=== PATIENT | female | born 1955 | race Caucasian/White ===

== ENCOUNTER 2024-07-28 15:31 | Emergency (ER) | payer MEDICARE ==
[2024-07-28] MEDS ORDERED: DELTASONE 20 MG ONE (16:15)
[2024-07-28 16:16] VITALS: TEMP 98.5
[2024-07-28] MEDS: DELTASONE 20 MG PO ONE (16:17)
--- NOTE | 2024-07-28 16:18 | ERPHSYRPT ---
- History of Present Illness Time Seen by Provider: 07/28/24 16:16 Source: patient Exam Limitations: no limitations Physician History: 69-year-old female presents to our ED for evaluation of a cough and fever. Symptoms started 1 week ago. Patient went to an urgent care on Saturday. Patient tested negative for strep. Patient is here because symptoms are ongoing. Patient reports a fever of 100.2 at home. However patient currently afebrile. No chest pain no shortness of breath. No nausea vomiting or diaphoresis. Symptoms are mild to moderate in intensity. No specific worsening or improving factors. Patient otherwise feels well. She voices no other complaints or concerns at this time. Portions of this note were created with voice recognition technology. There may be grammatical, spelling, punctuation or sound alike errors Timing/Duration: today Severity: moderate Modifying Factors: Improves With: nothing Associated Symptoms: denies symptoms Allergies/Adverse Reactions: No Known Drug Allergies Allergy (Verified 07/28/24 16:16) Home Medications: Tetracycline HCl 500 mg PO DAILY 07/28/24 [History] - Review of Systems Constitutional: No Symptoms, No Fever, No Chills Eyes: No Symptoms Ears, Nose, & Throat: No Symptoms Respiratory: No Symptoms, No Cough, No Dyspnea Cardiac: No Symptoms, No Chest Pain, No Edema, No Syncope Abdominal/Gastrointestinal: No Symptoms, No Abdominal Pain, No Nausea, No Vomiting, No Diarrhea Genitourinary Symptoms: No Symptoms, No Dysuria Musculoskeletal: No Symptoms, No Back Pain, No Neck Pain Skin: No Symptoms, No Rash Neurological: No Symptoms, No Dizziness, No Focal Weakness, No Sensory Changes Psychological: No Symptoms Endocrine: No Symptoms Hematologic/Lymphatic: No Symptoms Immunological/Allergic: No Symptoms All Other Systems: Reviewed and Negative - Past Medical History Neurological History: Other Cardiac History: No Pertinent History Respiratory History: No Pertinent History Endocrine Medical History: No Pertinent History Musculoskeletal History: Osteoporosis Other Medical History: SCIATIC PAIN, PIRIFORMIS PAIN. L UE FRACTURE 12/29/21. SURGERY 01/09/22. - Nursing Vital Signs Nursing Vital Signs: Initial Vital Signs Temperature 98.5 F 07/28/24 16:09 Pulse Rate 107 H 07/28/24 16:09 Respiratory Rate 20 07/28/24 16:09 Blood Pressure 154/88 07/28/24 16:09 O2 Sat by Pulse Oximetry 97 07/28/24 16:09 Pain Scale Pain Intensity 2 - Physical Exam General Appearance: no apparent distress, alert Eye Exam: PERRL/EOMI, eyes nml inspection Ears, Nose, Throat Exam: normal ENT inspection, TMs normal, pharynx normal, moist mucous membranes Neck Exam: normal inspection, non-tender, supple, full range of motion Respiratory Exam: normal breath sounds, airway intact, other (Mildly coarse breath sounds throughout), No respiratory distress Cardiovascular Exam: regular rate/rhythm, normal heart sounds, normal peripheral pulses Gastrointestinal/Abdomen Exam: soft, normal bowel sounds, No tenderness, No mass Back Exam: normal inspection, normal range of motion, No CVA tenderness, No vertebral tenderness Extremity Exam: normal inspection, normal range of motion, pelvis stable Neurologic Exam: alert, oriented x 3, cooperative, normal mood/affect, sensation nml, No motor deficits Skin Exam: normal color, warm, dry, No rash Lymphatic Exam: No adenopathy SpO2 Interpretation: normal SpO2: 97 O2 Delivery: Room Air - Course Nursing assessment & vital signs reviewed: Yes - Radiology Exams Chest X-ray Interpretation: Teleradiologist Report (Rt. upper lobe airspace disease. ) Ordered Tests: Active Orders 24 hr Category Date Time Status CHEST 1 VIEW (PORTABLE) Stat Exams 07/28/24 16:11 Completed UA W/RFX UR CULTURE Stat Lab 07/28/24 16:11 Completed Medication Summary Discontinued Medications Generic Name Dose Route Start Last Admin Trade Name Rossq PRN Reason Stop Dose Admin Amoxicillin/Clavulanate Potassium 875 mg 07/28/24 17:31 Amox Tr/Potassium Clavulanate 875 Mg Tablet PO 07/28/24 17:32 STAT ONE Amoxicillin/Clavulanate Potassium Confirm 07/28/24 17:37 Amox Tr/Potassium Clavulanate 875 Mg Tablet Administered 07/28/24 17:38 Dose 875 mg .ROUTE .STK-MED ONE Prednisone 40 mg 07/28/24 16:14 07/28/24 16:17 Prednisone 20 Mg Tablet PO 07/28/24 16:15 40 mg STAT ONE Administration Prednisone Confirm 07/28/24 16:15 Prednisone 20 Mg Tablet Administered 07/28/24 16:16 Dose 40 mg .ROUTE .STK-MED ONE Lab/Rad Data: Laboratory Results 07/28/24 07/28/24 Range/Units 16:18 16:11 Urine Color Yellow (Yellow) Urine Appearance Clear (Clear) Urine pH 7.0 (4.6-8.0) Ur Specific [place] <=1.005 (1.005-1.030) Urine Protein Negative (Negative) Urine Glucose (UA) Negative (Negative) mg/dL Urine Ketones Negative (Negative) Urine Blood Trace (Negative) Urine Nitrite Negative (Negative) Urine Bilirubin Negative (Negative) Urine Urobilinogen 0.2 (0.2) mg/dL Ur Leukocyte Esterase Negative (Negative) U Hyaline Cast (Auto) NONE SEEN (0-2) /LPF Urine Microscopic RBC 0-2 (0-5) /HPF Urine Microscopic WBC 0-2 (0-5) /HPF Ur Epithelial Cells None Seen (None Seen) /HPF Urine Bacteria None Seen (None Seen) /HPF Urine Culture Reflexed NO (NO) Influenza Type A Ag NEGATIVE (NEGATIVE) Influenza Type B Ag NEGATIVE (NEGATIVE) RSV (PCR) NEGATIVE (NEGATIVE) SARS-CoV-2 (PCR) NEGATIVE (NEGATIVE) Group A Strep Antibody NOT DETECTED (NEGATIVE) - Progress Progress: improved Progress Note: Patient is a 69-year-old female presents to emergency department for evaluation of cough and fever. Patient states the coughing is causing a sore throat. Rapid strep COVID influenza RSV negative. Physical exam reveals coarse breath sounds. Patient received prednisone in our ED. Chest x-ray reveals a right upper lobe pneumonia. Augmentin administered in our ED. A prescription for Augmentin, azithromycin/Z-Jose Daniel and prednisone forwarded to patient's pharmacy. No indication for further workup. Will discharge home. Patient reassessed. Vital stable. She voices no other complaints or concerns at this time. Patient agrees to follow-up with her primary care doctor within 48 hours for reevaluation. Portions of this note were created with voice recognition technology. There may be grammatical, spelling, punctuation or sound alike errors Complexity problem addressed is moderate acute complicated. No critical care time. Complex of data reviewed and analyzed is moderate. Test ordered chest reviewed results analyzed and correlated clinically with history and physical exam. Risk of complication and or risk of morbidity/mortality patient managem ent is moderate. A prescription for prednisone Augmentin and a Z-Jose Daniel forwarded to patient's pharmacy. Vital stable. Time spent to discharge patient approximately 10 minutes. Plan of care established for shared decision making. No social determinants of health present to impede follow-up. Portions of this note were created with voice recognition technology. There may be grammatical, spelling, punctuation or sound alike errors 07/28/24 17:40 Counseled pt/family regarding: lab results, diagnosis, need for follow-up, rad results - Departure Departure Disposition: Home Clinical Impression: Cough, Bronchitis, Pneumonia Condition: Stable Critical Care Time: No Referrals: KARLA MEDRANO MD [Primary Care Provider] - Follow up/PCP as directed Additional Instructions: Discharge/Care Plan DANNY VALLES was seen on 07/28/24 in the Emergency Room. The patient was counseled regarding Diagnosis,Lab results, Imaging studies, need for follow up and when to return to the Emergency Room. Prescriptions given: Discharge Note I have spoken with the patient and/or caregivers. I have explained the patient's condition, diagnosis and treatment plan based on the information available to me at this time. I have answered the patient's and/or caregiver's questions and addressed any concerns. The patient and/or caregivers have as good understanding of the patient's diagnosis, condition and treatment plan as can be expected at this point. The vital signs have been stable. The patient's condition is stable and appropriate for discharge from the emergency department. The patient will pursue further outpatient evaluation with the primary care physician or other designated or consulting physician as outlined in the discharge instructions. The patient and/or caregivers are agreeable to this plan of care and follow-up instructions have been explained in detail. The patient and/or caregivers have received these instruction. The patient/and or caregivers are aware that any significant change in condition or worsening of symptoms should prompt an immediate return to this or the closest emergency department or call 911. Prescriptions: Amox Tr/Potass Clav. 875 mg [Augmentin 875-125 Tablet] 875 mg PO BID 7 Days #14 tablet Prednisone 10 mg [Deltasone 10 mg] 20 mg PO DAILY 3 Days #6 tablet Azithromycin 250 mg [Zithromax 250 MG TABLET] 250 mg PO ZPACK #6 tablet
[2024-07-28 16:36] LABS: Appearance Clear (Clear); Bacteria None Seen /HPF (None Seen); Bilirubin Negative (Negative); Blood Trace (Negative); Epithelial Cells None Seen /HPF (None Seen); Glucose, Urine Negative (Negative); Hyaline Casts NONE SEEN /LPF (0-2); Ketones Negative (Negative); Leukocyte Esterase Negative (Negative); Nitrite Negative (Negative); Protein,Urine Dip Negative (Negative); RBC 0-2 /HPF (0-5); Specific Gravity <=1.005 (1.005-1.030); Urobilinogen 0.2 mg/dL (0.2); WBC 0-2 /HPF (0-5)
[2024-07-28 16:51] LABS: Group A Strep NOT DETECTED (NEGATIVE)
[2024-07-28 17:02] LABS: INFLUENZA A NEGATIVE (NEGATIVE); INFLUENZA B NEGATIVE (NEGATIVE); RESPIRATORY SYNCTIAL VIRUS NEGATIVE (NEGATIVE); SARS-CoV-2 Xpert Express NEGATIVE (NEGATIVE)
--- NOTE | 2024-07-28 17:05 | XRAY ---
Indication: Fever and cough. Comparison: April 25, 2010 Portable chest again hyperinflated with new patchy inferior right upper lobe ground glass airspace disease. Stable tiny left base calcified granuloma. Remaining heart and lungs unremarkable. Bony thorax intact with incidental osteopenia and incompletely visualized left humerus orthopedic hardware.
[2024-07-28] MEDS ORDERED: Augmentin 875-125 Tablet ONE (17:37)
[2024-07-28 17:39] VITALS: BP 140/79
[2024-07-28] MEDS: Augmentin 875-125 Tablet PO ONE (17:39)
[2024-07-28 17:45] VITALS: PULSE 90; RESP 20; O2SAT 96
== END 2024-07-28 17:53 | disposition home or self-care (01) ==
LOC: ED 15:31
DX: J18.9 Pneumonia, unspecified organism (principal); J40 Bronchitis, not specified as acute or chronic; R05.9 Cough, unspecified; R50.9 Fever, unspecified
CPT/HCPCS: 0241U; 71045; 81001; 87651; 99284; 99283; A9270-GY

== ENCOUNTER 2024-08-02 16:59 | Emergency (ER) | payer MEDICARE ==
[2024-08-02 17:09] VITALS: TEMP 99.5
[2024-08-02] MEDS ORDERED: DUONEB 0.5-3 MG/3 ml Neb IH ONE ×2 (17:32→21:58)
[2024-08-02] MEDS: DUONEB 0.5-3 MG/3 ml Neb IH ONE ×2 (17:34→22:01)
[2024-08-02 17:55] LABS: Absolute Neutrophil Ct (ANC) 8.67 x10^3/uL (1.56-6.13); BASOPHIL % 0.7 % (0.1-1.2); Eosinophil % 3.6 % (0.7-5.8); Hematocrit 39.1 % (34.1-44.9); Hemoglobin 13.3 g/dL (11.2-15.7); IMMATURE GRAN # 0.22 x10^3u/L (0.001-0.031); IMMATURE GRAN % 1.6 % (0.001-0.429); Mean Cell Volume 88.5 fL (79.4-94.8); Mean Corpuscular Hemoglobin 30.1 pg (25.6-32.2); Mean Platelet Volume 9.9 fL (9.4-12.3); Monocyte (Absolute #) 0.79 x10^3/uL (0.24-0.86); Monocytes % 5.6 % (4.7-12.5); Neutrophil % 61.5 % (34.0-71.1); Platelet Count 484 x10^3/uL (182-369); Red Blood Count 4.42 x10^6/uL (3.93-5.22); Red Cell Distribution Width 13.1 % (11.7-14.4); White Blood Count 14.1 x10^3/uL (3.98-10.04)
[2024-08-02 18:09] LABS: ALBUMIN 3.9 g/dL (3.5-5.0); ANION GAP 13.3 MEQ/L (5-15); BILIRUBIN,TOTAL 0.2 mg/dL (0.2-1.3); Calcium 9.4 mg/dL (8.4-10.2); Creatinine 1 0.75 mg/dL (0.52-1.04); EST GLOMERULAR FILTRATION RATE 85.1 ML/MIN; MAGNESIUM 2.2 mg/dL (1.6-2.3); Potassium 4.3 mmol/L (3.5-5.1)
[2024-08-02 18:21] LABS: NT PRO BNPII 36.3 pg/mL (<300); TROPONIN < 0.012 ng/mL (0.000-0.033)
--- NOTE | 2024-08-02 19:13 | ERPHSYRPT ---
- History of Present Illness Time Seen by Provider: 08/02/24 17:01 Source: patient, family Exam Limitations: no limitations Patient Subjective Stated Complaint: worsening sob and tightness below lungs. worse today. dx with pneumonia and bronchitis last Saturday. given amoxicillan, prednisone, and z pack. still on amoxicillan. Triage Nursing Assessment: Arrives to ED bed 5 ambulatory, a &Ox3, vss on RA. C/o shortness of breath worse with lying flat and wore with exertion. Also c/o "tightness" to lower chest. States dx with pneumonia and bronchitis 5 days ago. Was given rx for amoxicillan, prednisone, and azithromycin. Has completed all but the azithromycin. Denies pain, just sob and tightness. Skin PWD. Denies cough. No fever x 2 days. Slight headache. Physician History: 69-year-old female who was recently evaluated in this ER, diagnosed with pneumonia/bronchitis and was given Z-Jose Daniel along with Zithromax/prednisone presented in the ER still having bilateral lower lung tightness with some shortness of breath at exertion. Denies any chest pain or palpitations. Patient reports her fever is improved now. She is still taking antibiotics. Oxygen saturation is 97% on room air. No tachypnea or tachycardia. Lungs fairly clear to auscultation. Allergies/Adverse Reactions: No Known Drug Allergies Allergy (Verified 07/28/24 16:16) Home Medications: Tetracycline HCl 500 mg PO DAILY 07/28/24 [History] Hx Tetanus, Diphtheria Vaccination/Date Given: Yes Hx Influenza Vaccination/Date Given: Yes Hx Pneumococcal Vaccination/Date Given: No Travel Risk - International Travel Have you traveled outside of the country in past 3 weeks: No - Emerging Infectious Disease Are you exhibiting symptoms associated with any current EIDs: No Symptoms: Cough: New Onset, Headaches/Body Aches/ - Review of Systems Constitutional: No Symptoms Eyes: No Symptoms Ears, Nose, & Throat: No Symptoms Respiratory: Cough, Dyspnea Cardiac: No Symptoms Abdominal/Gastrointestinal: No Symptoms Genitourinary Symptoms: No Symptoms Musculoskeletal: Arthralgias Skin: No Symptoms Neurological: No Symptoms Endocrine: No Symptoms - Past Medical History Pertinent Past Medical History: Yes Neurological History: Other Cardiac History: No Pertinent History Respiratory History: No Pertinent History Endocrine Medical History: No Pertinent History Musculoskeletal History: Osteoporosis Other Medical History: SCIATIC PAIN, PIRIFORMIS PAIN. L UE FRACTURE 12/29/21. SURGERY 01/09/22. - Past Surgical History Past Surgical History: Yes Other Surgical History: melanoma right shoulder. left humerus - Social History Smoking Status: Never smoker Exposure to second hand smoke: No Drug Use: none - Social Determinants of Health Will the patient participate in the screening: Declined to provide - Nursing Vital Signs Nursing Vital Signs: Initial Vital Signs Temperature 99.5 F 08/02/24 17:00 Pulse Rate 108 H 08/02/24 17:00 Respiratory Rate 16 08/02/24 17:00 Blood Pressure 149/80 08/02/24 17:00 O2 Sat by Pulse Oximetry 95 08/02/24 17:00 Pain Scale Pain Intensity 4 - Physical Exam General Appearance: no apparent distress, alert, anxiety Eye Exam: PERRL/EOMI Ears, Nose, Throat Exam: hearing grossly normal, normal ENT inspection, normal pharynx Neck Exam: normal inspection, non-tender, supple, full range of motion Respiratory Exam: normal breath sounds, lungs clear Cardiovascular/Chest Exam: normal heart sounds, tachycardia Abdominal/Gastrointestinal Exam: soft, normal bowel sounds, No tenderness Extremity Exam: non-tender, normal range of motion Neurologic Exam: alert, oriented x 3, cooperative, No normal mood/affect (Anxious) Skin Exam: normal color SpO2 Interpretation: normal SpO2: 92 O2 Delivery: Room Air - Course EKG Interpreted by Me: RATE (101), Sinus Tach, Left [place] Deviation, LAFB, NORMAL INTERVALS, Non-specific ST Changes Ordered Tests: Active Orders 24 hr Category Date Time Status IV Insertion STAT Care 08/02/24 20:08 Active CHEST WITH CONTRAST [CT] Stat Exams 08/02/24 19:20 Completed CBC W DIFF Stat Lab 08/02/24 17:52 Completed CMP Stat Lab 08/02/24 17:52 Completed D-DIMER QUANTITATIVE Stat Lab 08/02/24 17:52 Completed Lactic Acid Stat Lab 08/02/24 17:51 Completed MAGNESIUM Stat Lab 08/02/24 17:52 Completed NT PRO BNPII Stat Lab 08/02/24 17:52 Completed TROPONIN Q4H Lab 08/02/24 17:52 Completed TROPONIN Q4H Lab 08/02/24 21:34 Completed TROPONIN Q4H Lab 08/03/24 01:30 Ordered Respiratory Therapy Assessment DAILY RT 08/02/24 17:36 Active Medication Summary Discontinued Medications Generic Name Dose Route Start Last Admin Trade Name Leeroy PRN Reason Stop Dose Admin Albuterol/Ipratropium 3 ml 08/02/24 17:28 08/02/24 17:34 Ipratropium/Albuterol Sulfate 3 Ml Ampul.Neb IH 08/02/24 17:29 3 ml STAT ONE Administration Albuterol/Ipratropium Confirm 08/02/24 17:32 Ipratropium/Albuterol Sulfate 3 Ml Ampul.Neb Administered 08/02/24 17:33 Dose 3 ml IH .STK-MED ONE Albuterol/Ipratropium 3 ml 08/02/24 21:52 08/02/24 22:01 Ipratropium/Albuterol Sulfate 3 Ml Ampul.Neb IH 08/02/24 21:53 3 ml STAT ONE Administration Albuterol/Ipratropium Confirm 08/02/24 21:58 Ipratropium/Albuterol Sulfate 3 Ml Ampul.Neb Administered 08/02/24 21:59 Dose 3 ml IH .STK-MED ONE Levofloxacin 500 mg 08/02/24 21:52 08/02/24 22:10 Levofloxacin 500 Mg Tablet PO 08/02/24 21:53 500 mg STAT ONE Administration Levofloxacin Confirm 08/02/24 22:10 Levofloxacin 500 Mg Tablet Administered 08/02/24 22:11 Dose 500 mg .ROUTE .STK-MED ONE Lab/Rad Data: Laboratory Result Diagrams 08/02/24 17:52 08/02/24 17:52 Laboratory Results 08/02/24 08/02/24 08/02/24 Range/Units 21:34 17:52 17:52 WBC (3.98-10.04) x10^3/uL RBC (3.93-5.22) x10^6/uL Hgb (11.2-15.7) g/dL Hct (34.1-44.9) % MCV (79.4-94.8) fL MCH (25.6-32.2) pg MCHC (32.2-35.5) g/dL RDW (11.7-14.4) % Plt Count (182-369) x10^3/uL MPV (9.4-12.3) fL Gran % (34.0-71.1) % Immature Gran % (Auto) (0.001-0.429) % Nucleat RBC Rel Count (0.00-0.2) % Eos # (Auto) (0.04-0.36) x10^3/uL Immature Gran # (Auto) (0.001-0.031) x10^3u/L Absolute Lymphs (auto) (1.18-3.74) x10^3/uL Absolute Monos (auto) (0.24-0.86) x10^3/uL Absolute Nucleated RBC (0.00-0.012) x10^3u/L Lymphocytes % (19.3-51.7) % Monocytes % (4.7-12.5) % Eosinophils % (0.7-5.8) % Basophils % (0.1-1.2) % Absolute Granulocytes (1.56-6.13) x10^3/uL Basophils # (0.01-0.08) x10^3/uL D-Dimer 0.86 H* (0.0-0.50) mg/L Sodium (135-145) mmol/L Potassium (3.5-5.1) mmol/L Chloride (98-107) mmol/L Carbon Dioxide (22-30) mmol/L Anion Gap (5-15) MEQ/L BUN (7-17) mg/dL Creatinine (0.52-1.04) mg/dL Estimated GFR ML/MIN Glucose (74-106) mg/dL Lactic Acid (0.4-2.0) Calcium (8.4-10.2) mg/dL Magnesium (1.6-2.3) mg/dL Total Bilirubin (0.2-1.3) mg/dL AST (14-36) U/L ALT (0-35) U/L Alkaline Phosphatase (38-126) U/L Troponin I < 0.012 < 0.012 (0.000-0.033) ng/mL NT-Pro-B Natriuret Pep 36.3 (<300) pg/mL Serum Total Protein (6.3-8.2) g/dL Albumin (3.5-5.0) g/dL 08/02/24 08/02/24 08/02/24 Range/Units 17:52 17:52 17:51 WBC 14.1 H (3.98-10.04) x10^3/uL RBC 4.42 (3.93-5.22) x10^6/uL Hgb 13.3 (11.2-15.7) g/dL Hct 39.1 (34.1-44.9) % MCV 88.5 (79.4-94.8) fL MCH 30.1 (25.6-32.2) pg MCHC 34.0 (32.2-35.5) g/dL RDW 13.1 (11.7-14.4) % Plt Count 484 H (182-369) x10^3/uL MPV 9.9 (9.4-12.3) fL Gran % 61.5 (34.0-71.1) % Immature Gran % (Auto) 1.6 H (0.001-0.429) % Nucleat RBC Rel Count 0.0 (0.00-0.2) % Eos # (Auto) 0.50 H (0.04-0.36) x10^3/uL Immature Gran # (Auto) 0.22 H (0.001-0.031) x10^3u/L Absolute Lymphs (auto) 3.80 H (1.18-3.74) x10^3/uL Absolute Monos (auto) 0.79 (0.24-0.86) x10^3/uL Absolute Nucleated RBC 0.00 (0.00-0.012) x10^3u/L Lymphocytes % 27.0 (19.3-51.7) % Monocytes % 5.6 (4.7-12.5) % Eosinophils % 3.6 (0.7-5.8) % Basophils % 0.7 (0.1-1.2) % Absolute Granulocytes 8.67 H (1.56-6.13) x10^3/uL Basophils # 0.10 H (0.01-0.08) x10^3/uL D-Dimer (0.0-0.50) mg/L Sodium 135 (135-145) mmol/L Potassium 4.3 (3.5-5.1) mmol/L Chloride 99 (98-107) mmol/L Carbon Dioxide 27 (22-30) mmol/L Anion Gap 13.3 (5-15) MEQ/L BUN 23 H (7-17) mg/dL Creatinine 0.75 (0.52-1.04) mg/dL Estimated GFR 85.1 ML/MIN Glucose 104 (74-106) mg/dL Lactic Acid 0.7 (0.4-2.0) Calcium 9.4 (8.4-10.2) mg/dL Magnesium 2.2 (1.6-2.3) mg/dL Total Bilirubin 0.20 (0.2-1.3) mg/dL AST 49 H (14-36) U/L ALT 142 H (0-35) U/L Alkaline Phosphatase 60 (38-126) U/L Troponin I (0.000-0.033) ng/mL NT-Pro-B Natriuret Pep (<300) pg/mL Serum Total Protein 7.0 (6.3-8.2) g/dL Albumin 3.9 (3.5-5.0) g/dL - Progress Progress: improved, re-examined Air Movement: good Progress Note: 08/02/24 22:30 69-year-old is evaluated in the ER for shortness of breath with exertion and still having nonproductive cough. Patient is not in any distress. Oxygen saturation in upper 90s. She has bilateral fairly good breath sounds except for mild decreased on the right lower. She is given neb treatment. Workup showed normal white count, fairly unremarkable chemistries and negative troponin. EKG is sinus tachycardia with no acute ischemic changes. I have obtained D-dimers which are elevated and CTA is negative for pulmonary embolism but did showed right-sided multifocal pneumonia. Since patient has taken Augmentin and Zithromax, I have recommended observation admission and have discussed with patient and family in detail and the preferred to go home which I believe is reasonable and I will start her on Levaquin and also give albuterol inhaler. I have discussed with the patient and family in detail about signs symptoms of worsening needing return to ER and also to keep an eye on the oxygen saturation which the seem understanding. Stable for discharge. Blood Culture(s) Obtained: Yes Antibiotics given: Yes Counseled pt/family regarding: lab results, diagnosis, need for follow-up, rad results Medical Desision Making - Independent Historian Additional History obtained from: Spouse - Diagnostic Testing Diagnostic test were ordered, analyzed, and reviewed by me: Yes Radiological Interpretation: Reviewed by me, Teleradiologist Report - Risk of complications The pt has a mod risk of morbidity or mortality based on: Need for prescription drug management - Departure Departure Disposition: Home Clinical Impression: Pneumonia Qualifiers: Pneumonia type: due to unspecified organism Laterality: right Lung location: unspecified part of lung Qualified Code(s): J18.9 - Pneumonia, unspecified organism Condition: Stable Critical Care Time: No Referrals: KARLA MEDRANO MD [Primary Care Provider] - Follow up with PCP 1 day Instructions: Pneumonia, Adult (DC) Additional Instructions: Use inhaler as needed. Follow-up with primary care for reevaluation. Return to ER for fever, worsening difficulty breathing, chest pain or pressure etc. Prescriptions: Albuterol Sulfate [Albuterol Sulfate Hfa] 8.5 gm IH Q6H PRN 10 Days #1 inh PRN Reason: Cough Levofloxacin [Levaquin 500 MG Tablet] 500 mg PO DAILY #10 tablet
--- NOTE | 2024-08-02 21:28 | XRAY ---
CLINICAL HISTORY: sob, PE? COMPARISON: - TECHNIQUE: Contiguous axial images were obtained from the neck base through the upper abdomen following intravenous administration of contrast material. If IV contrast material had not been administered, the likelihood of detecting abnormalities relevant to the patient's condition would have been substantially decreased. In addition, sagittal and coronal reconstructions were performed. CT scan was performed according to ALARA (as low as reasonable achievable). FINDINGS: No evidence of pulmonary embolism Patchy areas of ground-glass attenuation are seen in the right upper lobe, right middle and right lower lobe of the lung. Small calcified nodule in lower lobe of left lung. The central airways are patent. There are no pleural effusions. No pneumothorax is seen. No axillary, hilar, or mediastinal adenopathy is identified. The visualized thyroid is unremarkable. The heart, aorta, and pulmonary arteries are of normal size and configuration. No pericardial effusion is identified. Imaged portions of the upper abdomen reveals simple left renal cyst Degenerative changes in the visualized spine. No aggressive appearing osseous lesions are identified. IMPRESSION: 1. No evidence of pulmonary embolism 2. Patchy areas of ground-glass attenuation are seen in the right upper lobe, right middle and right lower lobe of the lung- suggestive of infective etiology Electronically Signed by: Arsalan Hernandez MD. (08/02/2024 21:25:16 EST)
[2024-08-02] MEDS ORDERED: Levofloxacin 500 MG Tablet ONE (22:10)
[2024-08-02] MEDS: Levofloxacin 500 MG Tablet PO ONE (22:10)
[2024-08-02 22:50] VITALS: BP 119/68
[2024-08-02 22:52] VITALS: PULSE 62; RESP 20; O2SAT 98
== END 2024-08-02 23:09 | disposition home or self-care (01) ==
LOC: ED 16:59
DX: J18.9 Pneumonia, unspecified organism (principal); R06.02 Shortness of breath; Z79.899 Other long term (current) drug therapy
CPT/HCPCS: 36415; 71260; 80053; 83605; 83735; 83880; 84484; 85025; 85379; 87040; 94640; 99284; 99285; A9270-GY